=== PATIENT | male | born 1965 | race Hispanic/Latino ===

== ENCOUNTER → 2018-01-27 | Day surgery (SDC) | payer BC ==
[~2018-01-27] MED LIST: BACITRACIN 50,000 UNIT VIAL ONE; BUPIVACAINE HCL 0.5% INJ 30 ML VIAL INJ ONE; CEFAZOLIN SOD 2 GM/D5W 50ML 50 ML IV ONE; DEXAMETHASONE SOD PHOS INJ 4 MG/ML VIAL ONE; FENTANYL CITRATE/PF 100MCG/2 ML INJ ONE; KETOROLAC TROMETHAMINE 30 MG/ML VIAL ONE; LIDOCAINE HCL 2% LOCAL INJ 5 ML SDV VIAL INJ ONE; MIDAZOLAM HCL 2 MG/2 ML VIAL ONE; MOTRIN PO; ONDANSETRON HCL INJ 2 MG/ML VIAL ONE; PROPOFOL IV EMULSION 10 MG/ML 20 ML VIAL ONE; SEVOFLURANE INHAL SOLN 250 ML PEN BTL ONE
--- NOTE | 2018-01-28 18:28 | Operative Report ---
DATE OF PROCEDURE: January 27, 2018 PREOPERATIVE DIAGNOSIS: Right ankle bimalleolar equivalent ankle fracture. POSTOPERATIVE DIAGNOSIS: Right ankle bimalleolar equivalent ankle fracture, right ankle syndesmosis injury PROCEDURES PERFORMED: 1. Right ankle closed reduction of the ankle mortise. 2. Open reduction and internal fixation of right fibular fracture. 3. Examination of syndesmosis under anesthesia. 4. Reduction of the syndesmosis with screw fixation and stabilization. CAUSTIC PURIFICATION OPERATOR: None. ANESTHESIA: General endotracheal intubation anesthesia. IV FLUIDS: Per the anesthesia record. BRIEF DESCRIPTION OF THE PATIENT'S OPERATIVE PROCEDURE: Mr. Holland was taken to the operating room and placed in supine position on the operating table. Following induction general anesthesia as well as endotracheal intubation, the patient's right lower extremity was examined under anesthesia. He was found to have bruising and ecchymosis involving the ankle joint. Fluoroscopic evaluation of the ankle joint demonstrated displaced fibular fracture and widening of the ankle mortise. The patient's lower extremity was prepped and draped in standard surgical fashion. The case was begun by reducing the patient's ankle mortise in a closed fashion. An incision was then created over the fibula laterally. This incision was carried through skin only. Blunt dissection was used to deepen the incision to the level of the fibular fracture. Fracture site was easily identified and the fracture site was cleaned. The fracture pattern, however, was not consistent with a supination external rotation type injury. The fracture was reduced and held in place with a fracture reduction clamp. A plate was contoured to the lateral aspect of the fibula and that plate was then affixed to the fibula with combinations of cortical and locking screws. Once the fibula had been stabilized, examination the ankle joint continues to demonstrate some mild widening of the medial clear space as well as now newfound widening of the syndesmosis. The ankle was stressed and the syndesmosis was found to have been disrupted at the time of the injury. The ankle mortise was again reduced and a tenaculum clamp was used to hold the ankle in a reduced position while the foot was held in neutral dorsiflexion. A single screw was then passed through a distal hole in the plate from lateral to medial transfixing the syndesmosis in its reduced position. The position of that screw as well as reduction of fracture was again assessed using fluoroscopy and found to be appropriate. The ankle was again stressed and there was no widening of the ankle mortise at this time. The wound was copiously irrigated and closed in a multilayer fashion. Sterile dressings were applied as well as a well-padded 3-sided splint. The patient was then awakened and taken to the post anesthesia care unit in stable condition. Job#: [id number] ERNESTO
== END | disposition home or self-care (01) ==
LOC: OR 06:55
PROVIDERS: ATTEND Specialist
DX: S82.841A Displaced bimalleolar fracture of right lower leg, initial encounter for closed fracture (principal); S93.431A Sprain of tibiofibular ligament of right ankle, initial encounter; S93.421A Sprain of deltoid ligament of right ankle, initial encounter
CPT/HCPCS: 27814; 27829; 76000; 93005; J1100; J1885; J2001; J2250; J2405

== ENCOUNTER → 2018-04-20 | Day surgery (SDC) | payer BC ==
[~2018-04-20] MED LIST changes: +ACETAMINOPHEN 1000 MG/100 ML IV ONE; +KETAMINE HCL INJ 50 MG/ML 10 ML VIAL ONE
[2018-04-20 12:40] VITALS: BP 135/77
--- NOTE | 2018-04-21 15:58 | Operative Report ---
DATE OF PROCEDURE: April 20, 2018 PREOPERATIVE DIAGNOSIS: Symptomatic hardware, right ankle. POSTOPERATIVE DIAGNOSIS: Symptomatic hardware, right ankle OPERATIONS/PROCEDURES PERFORMED: The patient underwent removal of the symptomatic hardware from the right ankle. TECHNICAL STAFF ASSISTANT: None. ANESTHESIA: General endotracheal intubation anesthesia. IV FLUIDS: Per the anesthesia record. BRIEF DESCRIPTION OF THE PATIENT'S OPERATIVE PROCEDURE: Mr. Holland was taken to the operating room and placed in the supine position on the operating table. Following induction of general anesthesia, as well as endotracheal intubation, the patient's right ankle was evaluated under anesthesia. He was found to have a well-healed incision over the lateral aspect of the ankle joint. Fluoroscopic evaluation of the ankle joint demonstrated screws traversing. A healed fracture of the fibula with a single syndesmosis screw traversing the syndesmosis region of the ankle. A [place] was used to identify the location of the syndesmosis screw. An incision was then created over the lateral aspect of the ankle overlying the area of the syndesmosis screw. Blunt dissection was used to deepen the incision to the level of the syndesmosis screw and the screw was easily identified and removed. The wound was copiously irrigated. Fluoroscopic evaluation confirmed removal of the screw. The wound was closed in a multilayer fashion. Dressings were applied and the patient was provided a tib-fib orthosis, awakened and taken to the postanesthesia care unit in stable condition. Job#: [id number] TATIANNA
== END | disposition home or self-care (01) ==
LOC: OR 08:03
PROVIDERS: ATTEND Specialist
DX: Z45.89 Encounter for adjustment and management of other implanted devices (principal); F41.9 Anxiety disorder, unspecified
CPT/HCPCS: 20680; J1100; J1885; J2001; J2250; J2405; 76000